=== PATIENT | male | born 1965 | race Caucasian/White ===

== ENCOUNTER 2017-06-10 01:03 | Emergency (ER) | payer OTHER, SELFPAY ==
[2017-06-10 01:22] VITALS: TEMP 97.8
--- NOTE | 2017-06-10 01:54 | CT ---
EXAM: CT Head Without Intravenous Contrast CLINICAL HISTORY: 51 years old, male; Pain; Headache and other: Left arm numbness TECHNIQUE: Axial computed tomography images of the head/brain without intravenous contrast. All CT scans at this facility use one or more dose reduction techniques, viz.: automated exposure control; ma/kV adjustment per patient size (including targeted exams where dose is matched to indication; i.e. head); or iterative reconstruction technique. COMPARISON: No relevant prior studies available. FINDINGS: Brain: Minimal atrophy. No intracranial hemorrhage. No mass. No definite edema. Ventricles: No hydrocephalus. Bones/joints: No acute fracture. Soft tissues: Unremarkable. Vasculature: Mild ectasia of basilar artery. Sinuses: No acute sinusitis. Mastoid air cells: No mastoid effusion. Orbits: Unremarkable as visualized. IMPRESSION: 1. No definite acute intracranial abnormality. Acute infarction may be CT occult within first 24 hours. If a focal deficit persists, consider followup CT or MRI for further evaluation. 2. Incidental/non-acute findings are described above.
[2017-06-10 02:27] LABS: BASO % 0.6 % (0.0-2.0); EOS # 0.2 K/uL (0.0-0.7); EOS % 2.5 % (0.0-4.0); HEMATOCRIT 42.4 % (35.0-51.0); LYMPH # 2.2 K/uL (1.0-4.3); LYMPH % 31.6 % (20.0-40.0); MEAN CELL VOLUME 93.2 fL (80.0-94.0); MEAN CORPUSCULAR HEMOGLOBIN 31.7 pg (27.0-31.0); MEAN PLATELET VOLUME 9.5 fL (7.2-11.7); MONO # 0.6 K/uL (0.0-0.8); RED CELL DISTRIBUTION WIDTH 13.3 % (11.5-14.5); WHITE BLOOD COUNT 7.1 K/uL (4.8-10.8)
[2017-06-10 02:36] LABS: CHLORIDE 99 mmol/L (98-107)
[2017-06-10 02:37] LABS: POTASSIUM 2.6 mmol/L (3.6-5.2); SODIUM 139 mmol/L (132-148)
[2017-06-10 02:39] LABS: ALB/GLOB RATIO 1.3 (1.0-2.1); AST/SGOT 23 U/L (17-59); BILIRUBIN,TOTAL 0.8 mg/dL (0.2-1.3); BLOOD UREA NITROGEN 11 mg/dL (9-20); CARBON DIOXIDE 30 mmol/L (22-30); GFR AFRICAN-AMERICAN > 60; TOTAL PROTEIN 6.7 g/dL (6.3-8.3)
[2017-06-10 02:40] LABS: ALKALINE PHOSPHATASE 62 U/L (38-126); ALT/SGPT 34 U/L (21-72); CALCIUM 8.4 mg/dl (8.6-10.4); GLUCOSE,RANDOM 90 mg/dL (75-110)
--- NOTE | 2017-06-10 02:51 | C.PDOC ---
History Of Present Illness 51 year old male who presents to the ER with a complaint of numbness to the right upper extremity and twitching of the left eye lid. Denies LOC, weakness, nausea, vomiting, or headache. Chief Complaint (Nursing): Weakness/Neurological Deficit History Per: Patient History/Exam Limitations: no limitations Onset/Duration Of Symptoms: Hrs Current Symptoms Are (Timing): Still Present Activity At Onset Of Symptoms: Other (Not known) Seizure Or Post-ictal Symptoms: None Possible Causative Factor(s): Other (Not known) Recent travel outside of the [place]: No - Symptoms Of CVA Associated Symptoms: denies: Impaired Speech, Seizure Activity, New Vision Deficit(Left), New Vision Deficit(Right), Decreased Ability To Walk, New Confusion Past Medical History Reviewed: Historical Data, Nursing Documentation, Vital Signs Vital Signs: Last Vital Signs Temp 97.8 F 06/10/17 02:00 Pulse 68 06/10/17 04:16 Resp 18 06/10/17 04:16 BP 186/98 H 06/10/17 04:16 Pulse Ox 98 06/10/17 04:16 - Medical History PMH: HTN Surgical History: No Surg Hx - [facility] Procedures ENDOSC POLYPECTOMY OF LG INTEST (11/29/13) INFLUENZA VACCINATION (11/29/13) VACCINATION NEC (11/29/13) Family History: States: Unknown Family Hx - Social History Hx Tobacco Use: Yes Hx Alcohol Use: Yes Hx Substance Use: No - Immunization History Hx Tetanus Toxoid Vaccination: No Hx Influenza Vaccination: No Hx Pneumococcal Vaccination: No Review Of Systems Constitutional: Negative for: Fever, Chills Gastrointestinal: Negative for: Nausea, Vomiting Musculoskeletal: Negative for: Arm Pain Neurological: Positive for: Numbness. Negative for: Weakness, Headache, Dizziness Physical Exam - Physical Exam Appears: Non-toxic Skin: Normal Color, Warm, Dry Head: Atraumatic, Normacephalic Eye(s): bilateral: Normal Inspection, PERRL, EOMI Oral Mucosa: Moist Chest: Symmetrical, No Tenderness Cardiovascular: Rhythm Regular, No Murmur Respiratory: Normal Breath Sounds, No Rales, No Rhonchi, No Wheezing Gastrointestinal/Abdominal: Soft, No Tenderness Extremity: Normal ROM (x4) Neurological/Psych: Oriented x3, Normal Speech, Normal Cognition, Normal Motor, Normal Sensation, Other (No focal deficits) ED Course And Treatment - Laboratory Results Result Diagrams: 06/10/17 02:17 06/10/17 02:17 O2 Sat by Pulse Oximetry: 97 (Room air) Pulse Ox Interpretation: Normal Progress Note: EKG, blood work, and CXR ordered. Disposition Counseled Patient/Family Regarding: Diagnosis - Disposition Referrals: [facility] [Outside] Disposition: HOME/ ROUTINE Disposition Time: 05:22 Condition: STABLE Prescriptions: amLODIPine [Norvasc] 5 mg PO DAILY #20 tab Aspirin [Adult Low Dose Aspirin EC] 162 mg PO DAILY #90 tablet. Instructions: Hypertension (DC) Forms: [facility] (Lithuanian), Gen Discharge Inst Burundian Print Language: MONGOLIAN - POA Present On Arrival: None - Clinical Impression Clinical Impression: Hypertension - Scribe Statement The provider has reviewed the documentation as recorded by the Scribjazmyn Kumar All medical record entries made by the Scribe were at my direction and personally dictated by me. I have reviewed the chart and agree that the record accurately reflects my personal performance of the history, physical exam, medical decision making, and the department course for this patient. I have also personally directed, reviewed, and agree with the discharge instructions and disposition.
[2017-06-10] MEDS ORDERED: Potassium Chloride 20 mEq/15 ml LIQ UD PO STA (03:45)
[2017-06-10] MEDS ORDERED: Potassium Chloride 20 mEq ER Tab PO ONE (04:12)
--- NOTE | 2017-06-10 04:15 | RAD ---
EXAM: XR Chest, 2 Views CLINICAL HISTORY: 51 years old, male; Pain; Chest pain TECHNIQUE: Frontal and lateral views of the chest. COMPARISON: No relevant prior studies available. FINDINGS: Lungs: No consolidation. Questionable nodule vs confluence LEFT lung base. Pleural space: No pleural effusion. No pneumothorax. Heart: Borderline cardiomegaly. Mediastinum: Mild tortuosity of thoracic aorta. Bones/joints: No acute fracture. IMPRESSION: 1. Borderline cardiomegaly. 2. Questionable pulmonary nodule. Recommend CT followup. 3. Incidental/non-acute findings are described above.
[2017-06-10 04:17] VITALS: BP 186/98; PULSE 68; RESP 18
--- NOTE | 2017-06-10 05:08 | CT ---
EXAM: CT Chest Without Intravenous Contrast CLINICAL HISTORY: 51 years old, male; Pain; Chest pain; Patient HX: 06-10-17; Additional info: Left lung base abnormality TECHNIQUE: Axial computed tomography images of the chest without intravenous contrast. All CT scans at this facility use one or more dose reduction techniques, viz.: automated exposure control; ma/kV adjustment per patient size (including targeted exams where dose is matched to indication; i.e. head); or iterative reconstruction technique. Coronal and sagittal reformatted images were created and reviewed. COMPARISON: CR - CHEST TWO VIEWS (PA/LAT) 06/10/2017 2:11:53 AM FINDINGS: Limitations: Lack of intravenous contrast. Lungs: No consolidation. Minimal atelectasis/scarring. No nodules. Pleural space: No pneumothorax. No significant effusion. Heart: Mild cardiomegaly. No significant pericardial effusion. Coronary artery calcifications. Bones/joints: No acute fracture. Soft tissues: Unremarkable. Vasculature: Ectasia of ascending thoracic aorta, up to 4.0 cm in diameter. Minimal atherosclerotic disease of aorta. Lymph nodes: No pathologically enlarged lymph nodes. IMPRESSION: 1. Mild cardiomegaly. 2. Incidental/non-acute findings are described above.
[2017-06-10 05:25] VITALS: O2SAT 97
--- NOTE | 2017-06-10 18:28 | CARD ---
APPROVED REPORT EKG Measurement Heart [id number] <Conclusion> Normal sinus rhythm Right bundle branch block T wave abnormality, consider lateral ischemia Abnormal ECG
== END 2017-06-10 07:11 | disposition home or self-care (01) ==
LOC: C.ER 01:03
DX: I10 Essential (primary) hypertension (principal); Z72.0 Tobacco use